=== PATIENT | female | born 1970 | race Caucasian/White ===

== ENCOUNTER → 2020-08-21 10:15 | Outpatient (CLI) | payer OTHER, SELFPAY ==
--- NOTE | ~2020-08-21 | MM_ITS ---
EXAMINATION: MM screening crow BI w osito HISTORY: Screening TECHNIQUE: Craniocaudal and mediolateral oblique 3-D tomosynthesis images were obtained and synthetic 2-D images were generated. CAD analysis was submitted and interpreted. COMPARISON: Comparison to multiple prior studies sequentially, with oldest reviewed study dated 04/05. BREAST PARENCHYMAL COMPOSITION: There are scattered areas of fibroglandular density. FINDINGS: Bilateral breast asymmetries are stable. There is no evidence of suspicious mass, calcifica tion, or architectural distortion to suggest malignancy in either breast. There has been no suspiciou s interval change. IMPRESSION: 1. No mammographic evidence of malignancy. 2. Recommend routine screening mammography in one year. BI-RADS Category 1: Negative Reviewed, dictated and finalized at location A.
== END ==
PROVIDERS: Visit Provider Obstetrics & Gynecology
DX: Z12.31 Encounter for screening mammogram for malignant neoplasm of breast (principal)
CPT/HCPCS: 77063; 77067

== ENCOUNTER 2021-04-16 08:58 | Outpatient (CLI) | payer OTHER, SELFPAY ==
--- NOTE | 2021-04-16 16:37 | WPDPFTINT ---
PFT Procedure Performed PFT Procedure Performed Plethysmography (Lung Vol) Diffusing Cap (DLCO) Flow Vol Loop Spirometry w/o Bronchodil PFT Interpretation This is a pulmonary function test with spirometry, plethysmography and diffusing capacity. The test was performed and results interpreted in accordance with the 2019 and 2005 ATS/ERS Task Force guidelines respectively using the Global Lung Function Initiative-2012 reference equations. Patient demonstrated good effort and cooperation. Reproducibility criteria were met. The quality of the spirometry maneuver was Grade A and post bronchodilator spirometry maneuver was Grade A. Findings: Spirometry: The contour of the inspiratory and expiratory flow tracing are normal. The FVC is 2.42 L, 69% predicted. The FEV1 is 1.99 L, 71% predicted% predicted. The FEV1: FVC ratio was 83%. Plethysmography: The total lung capacity is 3.64 L, 70% predicted. The functional residual capacity is 1.47 L, 50% predicted. The residual volume is 0.98 L, 52% predicted. Diffusing capacity: The absolute diffusion capacity is 16.4, 72% predicted. The diffusing capacity corrected for alveolar volume is 4.94, 109% predicted. Impression: There is a mild restrictive ventilatory abnormality. The spirometry is normal without evidence of an obstructive abnormality. The diffusing capacity is normal. There are no prior studies for comparison
== END 2021-04-16 08:59 | disposition home or self-care (01) ==
PROVIDERS: PCP Family Medicine; Visit Provider Family Medicine
DX: R05 Cough (principal); R06.00 Dyspnea, unspecified; R94.2 Abnormal results of pulmonary function studies
CPT/HCPCS: 94375; 94726; 94729

== ENCOUNTER → 2021-04-23 13:29 | Outpatient (CLI) | payer OTHER, SELFPAY ==
--- NOTE | ~2021-04-23 | XR_ITS ---
EXAMINATION: XR chest 2V 04/23/2021 13:46 INDICATION: Cough. No fever. PROCEDURE: 2 view chest COMPARISON: No prior studies for comparison. FINDINGS: The lungs are clear. The cardiomediastinal silhouette is within normal limits. There are no pleural effusions. There is no pneumothorax suspected. IMPRESSION: 1: NO ACUTE CARDIOPULMONARY DISEASE. Reviewed, dictated and finalized at location B.
== END ==
PROVIDERS: Visit Provider Internal Medicine Critical Care Medicine
DX: R05 Cough (principal)
CPT/HCPCS: 71046

== ENCOUNTER → 2021-08-20 | Outpatient (CLI) | payer OTHER, SELFPAY ==
--- NOTE | 2021-09-01 14:40 | WPDHOMESLEEP ---
Sleep Study - Home Unattended Date of Study: 08/20/21 <Mami Caceres DO - Last Filed: 09/01/21 15:04> Ordering Provider: Nicole Adkins MD <Mami Caceres DO - Last Filed: 09/01/21 15:04> Interpreting Provider: Mami Caceres DO <Mami Caceres DO - Last Filed: 09/01/21 15:04> Home Sleep Study Type: Watch PAT <Mami Caceres DO - Last Filed: 09/01/21 15:04> Height: 1.65 m <Mami Caceres DO - Last Filed: 09/01/21 15:04> Weight: 120.202 kg <Mami Caceres DO - Last Filed: 09/01/21 15:04> Body Mass Index: 44.1 <Mami Caceres DO - Last Filed: 09/01/21 15:04> Neck Circumference (inches): 16.75 <Mami Caceres DO - Last Filed: 09/01/21 15:04> [place]: 5 <Mami Caceres DO - Last Filed: 09/01/21 15:04> Reason for Sleep Study The patient has had recent onset of snoring and nighttime awakenings. 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 Adkins for snoring and unrefreshing sleep. She states that her sleep problems have been happening nightly for the past several months. She has tried multiple sleep medications and is currently on trazodone. The patient rarely awakens from sleep short of breath. She denies waking up with heartburn, belching or cough. She frequently snores loud enough that others complain [place]. She frequently has trouble sleeping when she has a cold. She occasionally wakes up gasping for air throughout the night. She rarely has breathing problems at night observed by others. She denies heart palpitations throughout the night. She never falls asleep during the day nor while driving. She denies sleep paralysis, cataplexy and hypnagogic / hypnopompic hallucinations. She denies having trouble at work due to sleepiness. She denies having nightmares. She denies feeling sad, depressed or anxious. She often notices parts of her body jerk. She denies kicking throughout the night. She denies experiencing crawling and aching feelings in her legs as well as leg pain throughout the night. She often grinds her teeth during sleep but never awakens with jaw pain. She never is bothered by pain during the day nor awakened by pain throughout the night. She frequently wakes up feeling stiff in the morning. The patient goes to bed at 10:00 p.m. on the weekdays and 11:00 p.m. on the weekends. It takes her 15-20 minutes to fall asleep. She wakes up 4 times at night to either change positions or to use the restroom. She can fall back asleep within minutes. She wakes up at 6:00 a.m. on weekdays and 8:00 a.m. on the weekends. 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 The patient currently lives with her and 2 daughters. She does not consume any caffeinated beverages within 2 hours of going to sleep. She does not engage in physical exercise before bedtime. She will read and watch television before falling asleep. She does not take any naps in the afternoon or the evening. She denies tobacco, alcohol and recreational drug use. She does drink 24-48 oz of a caffeinated beverage per day. <Mami Caceres DO - Last Filed: 09/01/21 15:04> [facility] Past Medical History Medical History: Medical History Asthma History of Felicity thyroiditis has normal labs, had a thyroid nodule Migraine Obesity Thyroid disease <Mami Caceres DO - Last Filed: 09/01/21 15:04> Surgical History Surgical History: Surgical History Allergies Essential hypertension History of tonsillectomy History of urethral stent <Mami Caceres, DO - Last Filed: 09/01/21 15:04> Family History Family History: Fam
[2021-09-01 14:50] VITALS: BMI 44.1
== END | disposition home or self-care (01) ==
LOC: ANHCSM 08:01
PROVIDERS: PCP Family Medicine; Visit Provider Internal Medicine Critical Care Medicine
DX: G47.10 Hypersomnia, unspecified (principal); G47.9 Sleep disorder, unspecified
CPT/HCPCS: 95800

== ENCOUNTER → 2021-08-27 12:14 | Outpatient (CLI) | payer OTHER, SELFPAY ==
--- NOTE | ~2021-08-27 | MM_ITS ---
EXAMINATION: MM screening crow BI w osito HISTORY: Screening TECHNIQUE: Craniocaudal and mediolateral oblique 3-D tomosynthesis images were obtained and synthetic 2-D images were generated. CAD analysis was submitted and interpreted. COMPARISON: Comparison to multiple prior studies sequentially, with oldest reviewed study dated 07/31. BREAST PARENCHYMAL COMPOSITION: There are scattered areas of fibroglandular density. FINDINGS: There is no evidence of suspicious mass, calcification, or architectural distortion to sugg est malignancy in either breast. There has been no suspicious interval change. IMPRESSION: 1. No mammographic evidence of malignancy. 2. Recommend routine screening mammography in one year. BI-RADS Category 1: Negative Reviewed, dictated and finalized at location A.
== END ==
PROVIDERS: Visit Provider Obstetrics & Gynecology
DX: Z12.31 Encounter for screening mammogram for malignant neoplasm of breast (principal)
CPT/HCPCS: 77063; 77067

== ENCOUNTER → 2022-02-11 11:57 | Outpatient (CLI) | payer OTHER, SELFPAY ==
--- NOTE | ~2022-02-11 | DEXA_ITS ---
Bone Density Report Name: JENISE BOURGEOIS Age: 51 Sex: Female Ethnicity: White Date of : 1970 Indication: monitoring treatment; asthma or emphysema; postmenopausal Referring Provider: ANDREAS CRUZ Study: Bone densitometry was performed. Exam Date: February 11, 2022 Accession number: [id number] Bone Density: Region BMD T-score Z-score Classification AP Spine (L1-L4) 1.194 1.3 2.3 Normal Femoral Neck (Left) 0.788 -0.5 0.4 Normal Total Hip (Left) 1.003 0.5 1.1 Normal Femoral Neck (Right) 0.767 -0.7 0.2 Normal Total Hip (Right) 0.973 0.3 0.9 Normal Total Hip Mean 0.988 0.4 1.0 Normal World Health Organization criteria for BMD impression classify patients as: Normal (T-score at or above -1.0), Osteopenia (T-score between -1.0 and -2.5), or Osteoporosis (T-score at or below -2.5). 10-year Fracture Risk: FRAX not reported because: All T-scores for Spine Total, Hip Total, Femoral Neck at or above -1.0 Treated for osteoporosis Previous Exams: Region Exam Age BMD T-score BMD Change BMD Change Date g/cm2 vs Baseline vs Previous AP Spine(L1-L4) 02/11/2022 51 1.194 1.3 0.031* 0.031* 08/31/2018 48 1.163 1.1 Total Hip(Left) 02/11/2022 51 1.003 0.5 -0.026 -0.026 08/31/2018 48 1.029 0.7 Total Hip(Right) 02/11/2022 51 0.973 0.3 -0.001 -0.001 08/31/2018 48 0.974 0.3 *Denotes significance at 95% confidence level, LSC for AP Spine = 0.022 g/cm2, LSC for Total Hip = 0.027 g/cm2 Clinical Information Provided by Patient: Is being treated for osteoporosis Has used the following medications: HRT (i.e. estrogen/hormone therapy), Vitamin D Has the following medical conditions: Asthma or Emphysema Patient maximum height was 65 Menopause Age: 51 No regular weight bearing exercise Drinks caffeinated beverages Onset of menses at age 10 Number of children 2 Missed period for more than 6 months in a row Impression: The patient has normal bone mass. No significant bone loss was observed. Discussion: PATIENT UNDER TREATMENT WITH NO SIGNIFICANT BMD LOSS SINCE LAST EXAM. In an untreated patient, BMD typically declines with age. A lack of decline or gain is usually a sign that treatment is efficacious and fracture risk is reduced. It is important to ask patients whether they are taking their medications and to encourage continued and appropriate compliance with their osteoporosis therap
== END ==
PROVIDERS: PCP Family Medicine; Visit Provider Family Medicine
DX: Z78.0 Asymptomatic menopausal state (principal)
CPT/HCPCS: 77080

== ENCOUNTER → 2023-06-24 08:40 | Outpatient (CLI) | payer OTHER, SELFPAY ==
--- NOTE | ~2023-06-24 | US_ITS ---
EXAMINATION: US transvaginal DATE: 06/24/2023 09:38 INDICATION: Postmenopausal bleeding. TECHNIQUE: Multiple transvaginal sonographic images of the pelvis were obtained. COMPARISON: CT abdomen and pelvis 01/17/14 FINDINGS: The uterus measures 5.7 x 3.3 x 5.1 cm. There is a 3.8 cm pedunculated fibroid on the left. There is no free fluid in the pelvis. The endometrial complex measures 10 mm in thickness. The ovaries are not visualized. IMPRESSION: 1. Thickened endometrial complex. The differential diagnosis includes endometrial hyperplasia, polyp, and carcinoma. Biopsy is recommended. 2. Uterine fibroid. Reviewed, dictated and finalized at location E. IMPRESSION: 1. Thickened endometrial complex. The differential diagnosis includes endometri al hyperplasia, polyp, and carcinoma. Biopsy is recommended. 2. Uterine fibroid.
== END ==
PROVIDERS: PCP Family Medicine; Visit Provider Family Medicine
DX: D25.9 Leiomyoma of uterus, unspecified (principal); N95.0 Postmenopausal bleeding; R93.89 Abnormal findings on diagnostic imaging of other specified body structures
CPT/HCPCS: 76830

== ENCOUNTER 2023-06-30 09:00 | Outpatient (NON) | payer OTHER, SELFPAY | END 2023-06-30 09:01 | disposition home or self-care (01) | PROVIDERS: Visit Provider Obstetrics & Gynecology | DX: N95.0 Postmenopausal bleeding (principal) | CPT/HCPCS: 88305 ==

== ENCOUNTER 2023-06-30 11:15 | Day surgery (SDC) | payer OTHER, SELFPAY ==
[2023-06-27 07:33] VITALS: BMI 44.0
--- NOTE | 2023-06-30 00:01 | PM.IMHP ---
H&P: HPI History of Present Illness Date/Time: 06/30/23 00:01 Chief Complaint: Bleeding Narrative: 52 y/o with postmenopausal bleeding. Ultrasound exam showed an endometrial complex 10 mm thick. Bleeding has stopped, and she has no pain. She takes estradiol and Prometrium. Review of Systems Review of Systems: All systems reviewed & are unremarkable except as noted in HPI and below PMFSH Past Medical History Medical History Aortic stenosis Asthma History of Felicity thyroiditis has normal labs, had a thyroid nodule Menopause Migraine Obesity Thyroid disease Vitamin D deficiency Surgical History Surgical History Allergies Essential hypertension History of delivery History of tonsillectomy History of urethral stent Family History Family History Mother Hypertension Father Hypertension Grandparent Family history of osteoarthritis Family history of malignant neoplasm Family history of kidney disease Acute myocardial infarction Social History Social History Smoking status: Never smoker Second hand tobacco smoke exposure: No Alcohol intake: never Substance use: never Substance use type: does not use Lack of Transportation: No Lack of Food: Never True Current Housing: I Have Housing Concerned About Future Housing: No Difficulty Paying Gas/Electric Bills: No Difficulty Paying for Meds: No Currently Unemployed: No Difficulty w/ Childcare or Family Care: No Living arrangements: with family Occupation/Education: occupation Additional occupation/education comments: Gender identity (if verbalized by the patient): Female Sexual Orientation (if Verbalized by the Patient): Straight or Heterosexual Spiritual care concerns: No Agree to blood products: Yes Meds Home Medications and Allergies Home Medications Medication Instructions Recorded Confirmed Type vitamin B complex (B 1 tablet PO DAILY 05/21/21 06/27/23 History Complex-Vitamin B12 tablet) conjugated estrogens 0.45 mg 0.45 mg PO DAILY 11/19/21 06/27/23 History tablet (Premarin) progesterone micronized 200 mg 200 mg PO QHS 11/19/21 06/27/23 History capsule (Prometrium) cholecalciferol (vitamin D3) 1,250 1,250 mcg PO 2XW #28 caps 05/20/22 06/27/23 Rx mcg (50,000 unit) capsule trazodone 50 mg tablet 50 mg PO QHS PRN insomnia #90 tabs 05/20/22 06/27/23 Rx valacyclovir 1 gram tablet 1,000 mg PO DAILY 07/27/22 06/27/23 History (Valtrex) furosemide 20 mg tablet 10 mg PO QAM #30 tabs 01/12/23 06/27/23 Rx Advair Diskus 250 mcg-50 mcg/dose See Rx Instructions .Route 01/16/23 06/27/23 Rx powder for inhalation (fluticasone .COMPLEX #180 ea propion-salmeterol) irbesartan 75 mg tablet 75 mg PO DAILY #90 tabs 02/16/23 06/27/23 Rx albuterol sulfate 90 mcg/actuation 1 - 2 puff inhalation Q4-6H PRN 03/15/23 06/27/23 Rx aerosol inhaler shortness of breath or wheezing #8.5 grams potassium chloride 10 mEq 10 meq PO DAILY #90 caps 05/12/23 06/27/23 Rx capsule,extended release Allergies Allergy/AdvReac Type Severity Reaction Status Date / Time latex Allergy Severe Redness of Verified 06/27/23 07:31 Skin Exam Const: Orientation/consciousness: patient oriented x3 Other: Well-developed, well-nourished female in no acute distress. Neck: Thyroid: thyroid normal Lymphatic: no lymphadenopathy noted (in neck, axilla or inguinal nodes) Resp: Effort & Inspection: normal respiratory effort Auscultation: clear to auscultation bilaterally Cardio: Rate: regular rate Rhythm: regular rhythm Heart sounds: S1 normal heart sound present and S2 normal heart sound present GI: Other: ABD: Soft, nontender, nondistended. No guarding or rebound
[2023-06-30] MEDS: ACETAMINOPHEN 500 MG TABLET 1000 MG PO (11:38)
[2023-06-30 11:54] VITALS: BP 158/69; PULSE 77; RESP 16; TEMP 36.4; O2SAT 98
[2023-06-30] MEDS: LACTATED RINGERS 1,000 ML 30 ML IV CONT (12:03)
--- NOTE | 2023-06-30 12:12 | WPDANESEPPF ---
Anes - Initial Pre Proc Eval Procedure: Operation Date: 06/30/23 12:30 Proposed Procedures p Hysteroscopy with Dilation and Curettage - Judd Nunez MD Date/Time: 06/30/23 12:12 Surgeon: Judd Nunez MD Pre Op Diagnosis: Postmenopausal Bleeding Patient Data Age: 52 Gender: F Height: 1.65 m Weight: 125.14 kg Last Vital Signs Temp 36.4 C L 06/30/23 11:54 Pulse 77 06/30/23 11:54 Resp 16 06/30/23 11:54 BP 158/69 H 06/30/23 11:54 Pulse Ox 98 06/30/23 11:54 O2 Del Method Room Air 06/30/23 11:54 Allergies Allergy/AdvReac Type Severity Reaction Status Date / Time latex Allergy Severe Redness of Verified 06/30/23 11:37 Skin Home Medications Medication Instructions Recorded Confirmed Type vitamin B complex (B 1 tablet PO DAILY 05/21/21 06/30/23 History Complex-Vitamin B12 tablet) conjugated estrogens 0.45 mg 0.45 mg PO DAILY 11/19/21 06/30/23 History tablet (Premarin) progesterone micronized 200 mg 200 mg PO QHS 11/19/21 06/30/23 History capsule (Prometrium) cholecalciferol (vitamin D3) 1,250 1,250 mcg PO 2XW #28 caps 05/20/22 06/30/23 Rx mcg (50,000 unit) capsule trazodone 50 mg tablet 50 mg PO QHS PRN insomnia #90 tabs 05/20/22 06/30/23 Rx valacyclovir 1 gram tablet 1,000 mg PO DAILY 07/27/22 06/30/23 History (Valtrex) furosemide 20 mg tablet 10 mg PO QAM #30 tabs 01/12/23 06/30/23 Rx Advair Diskus 250 mcg-50 mcg/dose See Rx Instructions .Route 01/16/23 06/30/23 Rx powder for inhalation (fluticasone .COMPLEX #180 ea propion-salmeterol) irbesartan 75 mg tablet 75 mg PO DAILY #90 tabs 02/16/23 06/30/23 Rx albuterol sulfate 90 mcg/actuation 1 - 2 puff inhalation Q4-6H PRN 03/15/23 06/30/23 Rx aerosol inhaler shortness of breath or wheezing #8.5 grams potassium chloride 10 mEq 10 meq PO DAILY #90 caps 05/12/23 06/30/23 Rx capsule,extended release Patient hx anesthesia problems: none Family hx anesthesia problems: none Results Review: All pre-operative results and documents have been reviewed as part of the pre-operative evaluation. [facility] Past Medical History Medical History Aortic stenosis Asthma History of Felicity thyroiditis has normal labs, had a thyroid nodule Menopause Migraine Obesity Thyroid disease Vitamin D deficiency Surgical History Surgical History Allergies Essential hypertension History of delivery History of tonsillectomy History of urethral stent Family History Family History Mother Hypertension Father Hypertension Grandparent Family history of osteoarthritis Family history of malignant neoplasm Family history of kidney disease Acute myocardial infarction Social History Social History Smoking status: Never smoker Second hand tobacco smoke exposure: No Alcohol intake: never Substance use: never Substance use type: does not use Lack of Transportation: No Lack of Food: Never True Current Housing: I Have Housing Concerned About Future Housing: No Difficulty Paying Gas/Electric Bills: No Difficulty Paying for Meds: No Currently Unemployed: No Difficulty w/ Childcare or Family Care: No Living arrangements: with family Occupation/Education: occupation Additional occupation/education comments: Gender identity (if verbalized by the patient): Female Sexual Orientation (if Verbalized by the Patient): Straight or Heterosexual Spiritual care concerns: No Agree to blood products: Yes Anes - Eval Final PreProcedure Day of Procedure 06/30/23 12:12 Patient weight: morbidly obese Heart: regular rate and rhythm Lungs: clear to auscultation Airway: Mallampati scale class II Neurological: alert and oriented Last oral intake: >/= 8 bonilla
--- NOTE | 2023-06-30 12:41 | WPDHPUPDATE1 ---
History and Physical Update Update Date/Time: 06/30/23 12:41 History and Physical has been reviewed, including an updated exam of the patient. There are NO changes in the patient's condition. Risks, benefits, and alternatives have been discussed and questions answered. Patient agrees to proceed with procedure.
[2023-06-30] MEDS: LIDOCAINE HCL 1% LOCAL INJ 20 ML VIAL 10 ML INFILTRATE (13:00)
--- NOTE | 2023-06-30 13:11 | P.OP_ITS ---
Procedure Note - Detailed Date of Procedure 06/30/23 Pre-op Diagnosis Postmenopausal Bleeding Thickened endometrial complex Post-op Diagnosis Same Procedure Performed Hysteroscopy Dilation and sharp curettage Surgeon Judd Nunez MD Anesthesia MAC and Regional (1% lidocaine paracervical block) Findings Thickened endometrium. No obvious masses. Bilateral tubal ostia seen. Description of Procedure The patient was taken to the operating room where she was prepared and draped in the usual sterile fashion in the dorsal lithotomy position. A sterile speculum was placed into the vagina. The anterior lip of the cervix was grasped with single-tooth tenaculum. Ten mL of 1% lidocaine was administered in a paracervical block. The cervix was then gently dilated using Hegar dilators until an 8 mm dilator could be passed. Hysteroscopy was performed using sterile saline as a distention medium. Findings are as noted above. Sharp curettage was then performed, and endometrial curettings were collected on a Telfa pad and passed off to be sent to pathology. Hemostasis was excellent. Sponge, lap, needle and instrument counts were correct. The patient was awakened and taken to the recovery room in stable condition. I was present and scrubbed through t he entire procedure. Estimated Blood Loss 5 Drains No Packing No Pathology Yes (Endometrial curettings) Complications None Condition Stable Disposition PACU
[2023-06-30 13:13] VITALS: BP 131/75; PULSE 80; RESP 16; O2SAT 96
[2023-06-30 13:23] VITALS: BP 126/66; PULSE 73; RESP 14; O2SAT 95
--- NOTE | 2023-06-30 13:24 | WPDANESPN ---
Anes - Prog Note Post-Op Date/Time: 06/30/23 13:24 Cardiovascular status: normal Respiratory status: normal Airway patency: baseline Post-Op hydration status: normal Vital Signs: Last Vital Signs Temp 36.4 C L 06/30/23 11:54 Pulse 80 06/30/23 13:13 Resp 16 06/30/23 13:13 BP 131/75 06/30/23 13:13 Pulse Ox 96 06/30/23 13:13 O2 Del Method Room Air 06/30/23 13:13 Pain Score (VAS): 0/10 Patient Feedback: Patient satisfied with anesthetic care.
[2023-06-30 13:33] VITALS: BP 130/73; PULSE 70; RESP 15; O2SAT 96
[2023-06-30 13:43] VITALS: BP 145/69; PULSE 73; RESP 15; O2SAT 100
== END 2023-06-30 14:01 | disposition home or self-care (01) ==
PROVIDERS: Visit Provider Obstetrics & Gynecology
PROC: 0U5B8ZZ Destruction of Endometrium, Via Natural or Artificial Opening Endoscopic (ICD-10-PCS; CPT 58563; principal; 2023-06-30 12:30)
DX: N95.0 Postmenopausal bleeding (principal)
CPT/HCPCS: 58558

== ENCOUNTER → 2023-09-02 10:46 | Outpatient (CLI) | payer OTHER, SELFPAY ==
--- NOTE | ~2023-09-02 | MM_ITS ---
EXAMINATION: MM screening crow BI w osito HISTORY: Screening mammogram TECHNIQUE: Craniocaudal and mediolateral oblique 3-D tomosynthesis images were obtained and synthetic 2-D images were generated. CAD analysis was submitted and interpreted. COMPARISON: 08/27/2021, 08/17/2020 bilateral screening mammogram examinations BREAST PARENCHYMAL COMPOSITION: There are scattered areas of fibroglandular density. FINDINGS: There is a stable circumscribed 4 x 6 x 7.5 mm opacity in the anterior aspect of the lower inner quadrant of the left breast. There is no evidence of suspicious mass, calcification, or archite ctural distortion to suggest malignancy in either breast. There has been no suspicious interval bagley e. IMPRESSION: 1. No mammographic evidence of malignancy. 2. Recommend routine screening mammography in one year. BI-RADS Category 2: Benign finding(s). Reviewed, dictated and finalized at location A.
== END ==
PROVIDERS: PCP Advanced Practice Midwife; Visit Provider Advanced Practice Midwife
DX: Z12.31 Encounter for screening mammogram for malignant neoplasm of breast (principal)
CPT/HCPCS: 77063; 77067

== ENCOUNTER 2024-01-26 10:27 | Outpatient (CLI) | payer OTHER, SELFPAY ==
--- NOTE | ~2024-01-26 | DEXA_ITS ---
Bone Density Report Name: JENISE BOURGEOIS Age: 53 Sex: Female Ethnicity: White Date of : 1970 Indication: postmenopausal; screening for osteoporosis; asthma or emphysema; Referring Provider: ANDREAS CRUZ Study: Bone densitometry was performed. Exam Date: January 26, 2024 Accession number: [id number] Bone Density: Region BMD T-score Z-score Classification AP Spine (L1-L4) 1.208 1.5 2.6 Normal Femoral Neck (Left) 0.823 -0.2 0.8 Normal Total Hip (Left) 1.049 0.9 1.6 Normal Femoral Neck (Right) 0.782 -0.6 0.5 Normal Total Hip (Right) 0.989 0.4 1.1 Normal Total Hip Mean 1.019 0.7 1.4 Normal World Health Organization criteria for BMD impression classify patients as: Normal (T-score at or above -1.0), Osteopenia (T-score between -1.0 and -2.5), or Osteoporosis (T-score at or below -2.5). 10-year Fracture Risk: FRAX not reported because: All T-scores for Spine Total, Hip Total, Femoral Neck at or above -1.0 Previous Exams: Region Exam Age BMD T-score BMD Change BMD Change Date g/cm2 vs Baseline vs Previous AP Spine(L1-L4) 01/26/2024 53 1.208 1.5 0.045* 0.014 02/11/2022 51 1.194 1.3 0.031* 0.031* 08/31/2018 48 1.163 1.1 Total Hip(Left) 01/26/2024 53 1.049 0.9 0.021 0.046* 02/11/2022 51 1.003 0.5 -0.026 -0.026 08/31/2018 48 1.029 0.7 Total Hip(Right) 01/26/2024 53 0.989 0.4 0.015 0.016 02/11/2022 51 0.973 0.3 -0.001 -0.001 08/31/2018 48 0.974 0.3 *Denotes significance at 95% confidence level, LSC for AP Spine = 0.022 g/cm2, LSC for Total Hip = 0.027 g/cm2 Clinical Information Provided by Patient: Has used the following medications: HRT (i.e. estrogen/hormone therapy), Vitamin D, Calcium Has the following medical conditions: Asthma or Emphysema Patient maximum height was 65 Menopause Age: 51 No regular weight bearing exercise Drinks caffeinated beverages Onset of menses at age 10 Number of children 2 Missed period for more than 6 months in a row Impression: The patient has normal bone mass. No significant bone loss was observed. Discussion: BONE DENSITY IS ABOVE THE MINIMUM DESIRABLE LEVEL AT ALL SKELETAL SITES TESTED. This patient?s bone mineral density is above the minimum desirable level (T-score -1.0 or better) at all sites measured. The patient should follow a healthful lif
== END 2024-01-26 10:28 ==
LOC: MICIMG 10:28
PROVIDERS: PCP Family Medicine; Visit Provider Nurse Practitioner
DX: Z78.0 Asymptomatic menopausal state (principal)
CPT/HCPCS: 77080

== ENCOUNTER 2024-05-10 13:51 | Outpatient (CLI) | payer OTHER, SELFPAY ==
--- NOTE | ~2024-05-10 | XR_ITS ---
Right Knee Technique: AP, lateral, and sunrise views were obtained. Clinical History: Pain Findings: No fracture or dislocation is seen. There is medial compartment narrowing. There is moderat e tricompartmental osteophyte formation.. Soft tissues are unremarkable. No joint effusion is seen. 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 Reviewed, dictated and finalized at location . 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
== END 2024-05-10 13:52 ==
PROVIDERS: PCP Family Medicine; Visit Provider Family Medicine
DX: M17.11 Unilateral primary osteoarthritis, right knee (principal)
CPT/HCPCS: 73564

== ENCOUNTER 2024-09-03 16:08 | Outpatient (CLI) | payer OTHER, SELFPAY ==
--- NOTE | ~2024-09-03 | XR_ITS ---
EXAMINATION: XR chest 2V 09/03/2024 16:27 INDICATION: Persistent cough PROCEDURE: 2 view chest COMPARISON: 04/23/2021 FINDINGS: The lungs are clear. The cardiomediastinal silhouette is within normal limits. There are no pleural effusions. There is no pneumothorax suspected. IMPRESSION: 1: NO ACUTE CARDIOPULMONARY DISEASE. Reviewed, dictated and finalized at location B.
== END 2024-09-03 16:09 | disposition home or self-care (01) ==
PROVIDERS: PCP Family Medicine; Visit Provider Nurse Practitioner
DX: R05.8 Other specified cough (principal)
CPT/HCPCS: 71046

== ENCOUNTER 2024-09-06 10:44 | Outpatient (CLI) | payer OTHER, SELFPAY ==
--- NOTE | ~2024-09-06 | MM_ITS ---
EXAMINATION: MM screening [facility] BI w [facility] HISTORY: Screening TECHNIQUE: Craniocaudal and mediolateral oblique 3-D tomosynthesis images were obtained and synthetic 2-D images were generated. CAD analysis was submitted and interpreted. COMPARISON: Comparison to multiple prior studies sequentially, with oldest reviewed study dated 07/2020.. BREAST PARENCHYMAL COMPOSITION: Not dense: There are scattered areas of fibroglandular density. FINDINGS: There is no evidence of suspicious mass, calcification, or architectural distortion to sugg est malignancy in either breast. There has been no suspicious interval change. IMPRESSION: 1. No mammographic evidence of malignancy. 2. Recommend routine screening mammography in one year. BI-RADS Category 1: Negative Reviewed, dictated and finalized at location B.
== END 2024-09-06 10:45 | disposition home or self-care (01) ==
PROVIDERS: PCP Family Medicine; Visit Provider Nurse Practitioner
DX: Z12.31 Encounter for screening mammogram for malignant neoplasm of breast (principal)
CPT/HCPCS: 77063; 77067

== ENCOUNTER 2025-09-12 09:59 | Outpatient (CLI) | payer BC, SELFPAY ==
--- NOTE | ~2025-09-12 | MM_ITS ---
EXAMINATION: MM screening [facility] BI w osito HISTORY: Screening TECHNIQUE: Craniocaudal and mediolateral oblique 3-D tomosynthesis images were obtained and synthetic 2-D images were generated. CAD analysis was submitted and interpreted. COMPARISON: Comparison to multiple prior studies sequentially, with oldest reviewed study dated 08/21/2020. BREAST PARENCHYMAL COMPOSITION: Not dense: There are scattered areas of fibroglandular density. FINDINGS: There is no evidence of suspicious mass, calcification, or architectural distortion to suggest malignancy in either breast. There has been no suspicious interval change. IMPRESSION: 1. No mammographic evidence of malignancy. 2. Recommend routine screening mammography in one year. BI-RADS Category 1: Negative Reviewed, dictated and finalized at location B.
== END 2025-09-12 10:00 | disposition home or self-care (01) ==
LOC: MICIMG 10:00
DX: Z12.31 Encounter for screening mammogram for malignant neoplasm of breast (principal)
CPT/HCPCS: 77063; 77067